=== PATIENT | female | born 1970 | race Caucasian/White ===

== ENCOUNTER → 2016-08-28 | Outpatient (CLI) | payer MEDICARE, OTHER ==
--- NOTE | 2016-08-28 10:11 | US ---
EXAMINATION TYPE: US kidneys/renal and bladder DATE OF EXAM: 08/28/2016 9:50 AM COMPARISON: 12/30/2015 CLINICAL HISTORY: Abd Pain R10.84. Left flank pain and left pelvic pain; renal stones, UTI; patient s lee is on antibiotics for urinary infection, and also had surgery on left kidney as a child EXAM MEASUREMENTS: Right Kidney: 11.0 x 4.8 x 3.6 cm Left Kidney: 13.0 x 5.8 x 5.7 cm Post Void Residual Volume: 10.5 mL Findings: Right Kidney: multiple renal calcifications are noted with largest in superior pole = 0.8 x 0.4 x 0.3 cm; mild hydronephrosis noted upper pole Left Kidney: moderate hydronephrosis; multiple renal calcifications noted throughout with largest at inferior pole =1.1 x 0.8 x 0.6cm Bladder: posterior wall stones especially noted left posterior bladder = 0.4 x 0.4 x 0.2cm and seen p re and post void Bilateral Jets seen: no, only right ureteral jet was seen within 3 minute observation Normal Post Void Residual: Yes IMPRESSION: 1. Mild right-sided hydronephrosis and nephrolithiasis. 2. Moderate left-sided hydronephrosis with multiple calculi seen as discussed above. 3. Urinary bladder calculi.
== END | disposition home or self-care (01) ==
LOC: RADUSWWP 08:50
PROVIDERS: ATTEND Family Medicine
DX: N13.2 Hydronephrosis with renal and ureteral calculous obstruction (principal); N21.0 Calculus in bladder
CPT/HCPCS: 76770

== ENCOUNTER → 2017-08-30 | Outpatient (CLI) | payer MEDICARE, OTHER ==
--- NOTE | 2017-08-30 09:41 | US ---
EXAMINATION TYPE: US kidneys/renal and bladder DATE OF EXAM: 08/30/2017 COMPARISON: US renal 04/05/2017, CT abdomen and pelvis 04/05/2017 CLINICAL HISTORY: N20.9 Urolithiasis. History of stones. Left flank pain EXAM MEASUREMENTS: Right Kidney: 12.2 x 4.9 x 4.9 cm Left Kidney: 12.2 x 4.4 x 4.9 cm Right Kidney: Echogenic foci upper pole measuring 0.6 cm Left Kidney: Multiple echogenic foci visualized throughout, largest upper pole measuring 1.1 cm. Hypo echoic, cystic area visualized in the upper pole measuring 2.4 x 2.0 x 1.6 cm, possible parapelvic cy st vs other Bladder: Echogenic debris visualized within Bilateral Jets seen: No. Jets are not visualized after 3 minutes of scanning IMPRESSION: Markedly abnormal left kidney remains present with multiple nonobstructing calculi and simple appeari ng cysts. Consider nuclear medicine functional study to assess for left renal function if has not bee n performed.
== END | disposition home or self-care (01) ==
LOC: RADUSWWP 08:50 → MERGE 09:00
PROVIDERS: ATTEND Family Medicine
DX: N20.0 Calculus of kidney (principal); N28.1 Cyst of kidney, acquired
CPT/HCPCS: 76770

== ENCOUNTER → 2018-05-07 | Outpatient (CLI) | payer MEDICARE, OTHER ==
--- NOTE | 2018-05-07 10:47 | USB ---
Reason for exam: clinical finding. History: Family history of breast cancer in cousin and breast cancer in aunt. Indicated problem(s): palpable abnormality in the right breast. Physical Findings: Nurse Summary: right breast palpable 11 o'clock upper outer quadrant, 0.5 x 0.5cm, mobile, tender, bilateral nodularity/tenderness on exam (nurse ts). US Breast BILAT Technologist: Tiara Verde, RT (R)(M) Right complete breast ultrasound includes all four quadrants, the retroareolar region and axilla. Finding demonstrates a 6 x 3 x 7mm oval, cystic, benign lesion at 11 o'clock. Left complete breast ultrasound includes all four quadrants, the retroareolar region and axilla. Finding demonstrates a 6 x 3 x 11mm oval, cystic, benign lesion at 4 o'clock corresponds to the palpable abnormality and a 5mm node at the axilla. These results were verbally communicated with the patient and result sheet given to the patient on 05/07/18. ASSESSMENT: Incomplete: need additional imaging evaluation, BI-RAD 0 RECOMMENDATION: Follow-up diagnostic mammogram of both breasts.
--- NOTE | 2018-05-07 10:50 | MM ---
Reason for exam: clinical finding. Baseline mammogram. History: Family history of breast cancer in cousin and breast cancer in aunt. MG Diagnostic Mammo w CAD WEN Bilateral CC and MLO view(s) were taken. Technologist: Tiara Verde RT (R)(M) The breast tissue is heterogeneously dense. This may lower the sensitivity of mammography. There is a posterior depth left upper outer quadrant mass corresponding to the sonographically normal node. There is a right mass in the upper outer quadrant at posterior depth at 11 o'clock corresponding to a cyst on ultrasound. These results were verbally communicated with the patient and result sheet given to the patient on 05/07/18. ASSESSMENT: Benign, BI-RAD 2 RECOMMENDATION: Routine screening mammogram of both breasts in 1 year.
== END ==
LOC: RADUSWWP 09:43
PROVIDERS: ATTEND Family Medicine
DX: R92.8 Other abnormal and inconclusive findings on diagnostic imaging of breast (principal)
CPT/HCPCS: 77066

== ENCOUNTER → 2018-05-23 | Outpatient (CLI) | payer MEDICARE, OTHER ==
--- NOTE | 2018-05-23 14:48 | P.GSHP ---
History of Present Illness H&P Date: 05/23/18 Chief Complaint: patient complains of tenderness in the right breast for 6 months The patient is a 47 year old white female with a complaint of tenderness in her right breast. This is been present for approximately 6 months. She had her first mammogram and ultrasound performed on [id number]. On the ultrasound she was noted to have in the right breast a 6 x 7 mm cystic benign lesion at 11: 00. In the left breast she was noted to have a 6 x 11 mm cystic lesion at 4:00 corresponding to the palpable change and a 5 mm node in the axilla. She then had a bilateral mammogram performed which revealed a left upper outer quadrant mass corresponding to the sonographically normal node. In the right a mass in the upper outer quadrant corresponding to a cyst seen on ultrasound. This was felt to be benign and it was recommended she have routine screening mammogram of both breast in 1 year. The patient has no history of any trauma or infection in the breast. She does smoke and lives with at smoker. She does not drink pop. She drinks coffee, about a pot/day. She eats chocolate rarely. The pain is not cyclical. Family history: 1.sister: cervical cancer 2. cousin maternal: cervical cancer Hormonal History: menarche: 16 : 5, 2 miscarriages, breast fed: none, first at 19 periods: partial hysterectomy for bleeding left her ovaries BCP: 2 years hormones: none Past Surgical History: 1. partial nephrectomy for Wilhms tumor 2. hysterectomy 3. gallbladder 4. partial knee 5. tonsil Past Medical History: 1. kidney dysfunction 2. diabetic diet controlled Social History: smoke: 1/PPD for 15 years alcohol: rare drugs: none - Constitutional Constitutional: Reports sweats - EENT Comment: vertigo Eyes: bilateral bulging eye, bilateral pain Ears: right: tinnitus, deny: decreased hearing Ears, nose, mouth and throat: Reports headache, Denies sore throat - Breasts Breasts: bilateral: as per HPI - Cardiovascular Comment: prolapsed mitral valve - Respiratory Comment: asthma, Respiratory: Denies cough, Denies 7 - Gastrointestinal Comment: PUD Gastrointestinal: Denies abdominal pain, Denies diarrhea, Denies nausea, Denies vomiting - Genitourinary (Female) Genitourinary: Reports hematuria, Reports kidney stones - Menstruation Menstruation: Reports post hysterectomy - Musculoskeletal Comment: arthritis/fibromyalgia - Integumentary Integumentary: Denies pruritus, Denies rash - Neurological Neurological: Reports numbness, Denies weakness - Psychiatric Psychiatric: Reports anxiety - Endocrine Comment: diabetes, over-active thyroid - Hematologic/Lymphatic Comment: none - Allergic/Immunologic Allergic/Immunologic: Reports seasonal allergies Past Medical History Past Surgical History: Cholecystectomy, Hysterectomy, Orthopedic Surgery Past Psychological History: Anxiety Smoking Status: Current every day smoker Surgical - Exam - General well developed, well nourished, no distress - Eyes normal ocular movement - ENT no hearing loss, no congestion - Neck trachea midline - Respiratory normal respiratory effort, clear to auscultation - Cardiovascular Rhythm: regular Heart Sounds: normal: S1, S2 - Abdomen Abdomen: soft, non tender, no guarding, no rigid, no rebound - Integumentary no rash, no abnormal pigmentation - Neurologic no disoriented, no combative - Musculoskeletal normal gait, normal posture - Psychiatric oriented to time, oriented to person, oriented to place, speech is normal, memory intact Breast examination: Right breast: Multi-positional exam no dominant masses or nodules of concern noted Right axilla: No adenopathy of concern Left breast: Multi-positional exam of dominant masses or nodules of concern Left axilla: No adenopathy of concern Results RADIOGRAPH reports reviewed Assessment and Plan Assessment: Impression: 1. Pain right breast 2. Fibrocystic breast changes 3. Wilms tumor left kidney status post partial nephrectomy 4. History of kidney stones 5. arthritis 6. Mitral valve prolapse 7. Status post cholecystectomy 8. Nicotine dependence 9. Hypoparathyroidism, 10. Diabetes Plan: 1. Discussion regarding fibrocystic breast disease and breast pain 2. Patient will decide based on discussion regarding smoking and caffeine intake 3. Medical management of medical problems CC: Dr. Ferrara
[2018-05-23 14:51] VITALS: BP 129/80; PULSE 77; RESP 18; TEMP 99.9; BMI 23.3
== END | disposition home or self-care (01) ==
LOC: WWCWWP 14:04
PROVIDERS: ATTEND Surgery
DX: Z53.9 Procedure and treatment not carried out, unspecified reason (principal)

== ENCOUNTER → 2018-09-06 | Outpatient (CLI) | payer MEDICARE, OTHER ==
--- NOTE | 2018-09-06 16:05 | US ---
EXAMINATION TYPE: US kidneys/renal and bladder DATE OF EXAM: 09/06/2018 COMPARISON: 08/30/2017, 04/05/2017 and 08/28/2016 renal ultrasound as well as CT dated 04/05/2017 CLINICAL HISTORY: Kidney Pain N23. left kidney pain, known stones EXAM MEASUREMENTS: Right Kidney: 10.8 x 5.3 x 5.4 cm Left Kidney: 11.4 x 6.8 x 7.2 cm Right Kidney: No hydronephrosis or masses seen Left Kidney: multiple stones seen with hydronephrosis present, largest stone appears to be laterally = 1.3cm Bladder: wnl Bilateral Jets seen: yes IMPRESSION: 1. Continued worsening of the markedly abnormal appearance of the left kidney with severe left hydron ephrosis and multiple renal calculi. Cortical renal thinning indicates chronicity. 2. No hydronephrosis or nephrolithiasis on the right.
--- NOTE | 2018-09-06 16:55 | CT ---
EXAMINATION TYPE: CT abdomen pelvis wo con DATE OF EXAM: 09/06/2018 COMPARISON: 04/05/2017 INDICATION: left flank pain, hx of stones DLP: 229 mGycm, Automated exposure control for dose reduction was used. CONTRAST: 0 mL of Isovue 300. Study performed without Oral Contrast TECHNIQUE: Axial images were obtained from above the diaphragm to the pubic rami in the axial plane a t 5 mm thick sections. Reconstructed images are reviewed on the computer in the coronal plane. FINDINGS: Limited CT sections are obtained the lung bases. The lung bases are clear. CT ABDOMEN: Liver: Normal Spleen: Normal Pancreas: Normal Adrenal glands: The adrenal glands are normal. Gallbladder: Surgically absent Kidneys: No masses are evident. There is moderate to marked left hydronephrosis. Extensive nonobstruc ting renal stones are scattered throughout the upper and lower poles the slightly malrotated left kid dru. Calcifications measure approximately 0.3-0.4 cm each. There is mild left hydroureter within the proximal portion. Mid pelvic portion is somewhat difficult to visualize. However, there are 2 calcifi cations just proximal to the left ureterovesical junction which could be distal ureteral stones. This measures 0.3 cm may be at the left ureterovesical junction, series 3 image 114 in the distal left ur eter measuring 0.2 cm, series 3 image 111. There are phleboliths present within the pelvis. The dista l right ureteral stone is not excluded. Mild right hydronephrosis may be present. Hydroureter however is not identified No cysts are present. Aorta: Normal Inferior vena cava: Normal. CT PELVIS: Loops of bowel within the abdomen and pelvis are normal. Study is performed without oral contrast limiting bowel evaluation. Appendix: Not visualized. No suspicious tubular structures or inflammatory changes are identified. Urinary bladder: Normal. Genitourinary structures: Uterus is not identified. Adnexal regions appear clear Osseous structures: No suspicious lytic or sclerotic lesions. IMPRESSIONS: 1. Moderate to marked left hydronephrosis. Multiple nonobstructing renal stones are within the malro tated left kidney. These measure 0.3 to 0.4 cm in size. 2. Mild left hydroureter within the proximal portion. 2 distal left ureteral stones may be present. D ifferential could include phleboliths. Correlate with symptoms. 3. Mild right hydronephrosis. No obstructing renal or ureteral stones are evident. Distal right urete ral stone however is not entirely excluded. No significant hydroureter is evident on the right.
== END ==
LOC: RADUSWWP 15:00
PROVIDERS: ATTEND Family Medicine
DX: N13.2 Hydronephrosis with renal and ureteral calculous obstruction (principal)
CPT/HCPCS: 74176; 76770

== ENCOUNTER → 2020-05-26 | Outpatient (CLI) | payer MEDICARE, OTHER ==
[~2020-05-26] MED LIST: FUROSEMIDE 10 MG/ML 2 ML VIAL IV ONE
--- NOTE | 2020-05-26 15:17 | NM ---
EXAMINATION TYPE: NM lasix renogram DATE OF EXAM: 05/26/2020 COMPARISON: 08/30/2019 HISTORY: Pain, hydronephrosis Following administration of 9.74 mCi Tc 99m MAG3 with 20mg Lasix. Immediate images post injection FINDINGS: Left: 47.1 %. Right: 52.9 %. Max renal flow left: 11.5 minutes. Max renal flow right: 52.9 minutes. Satisfactory accumulation of radiotracer within both renal collecting systems. After the administrati on of Lasix, there is prompt excretion from both collecting systems. T 1/2 left: 18.5 minutes. T 1/2 right: 11.6 minutes. IMPRESSION: 1. Split renal function of 53% on the right and 47% on the left. Additionally, there appears to be re duced radiotracer accumulation within the left kidney and a longer T1/2 time compatible with hydronep hrosis.
== END | disposition home or self-care (01) ==
LOC: RADNMMAIN 13:54
PROVIDERS: ATTEND Urology
DX: N13.30 Unspecified hydronephrosis (principal); Z88.0 Allergy status to penicillin; Z88.5 Allergy status to narcotic agent; Z88.8 Allergy status to other drugs, medicaments and biological substances
CPT/HCPCS: 78708; A9562

== ENCOUNTER → 2020-11-04 | Outpatient (CLI) | payer MEDICARE, OTHER | END | disposition home or self-care (01) | LOC: LABWHC1 16:18 | PROVIDERS: ATTEND Family Medicine | DX: Z20.822 Contact with and (suspected) exposure to COVID-19 (principal) | CPT/HCPCS: U0003; C9803 ==

== ENCOUNTER → 2021-05-06 | Outpatient (CLI) | payer MEDICARE, OTHER ==
[2021-05-06 22:33] LABS: HCT 43.4 % (37.2-46.3); HGB 14.1 g/dL (12.0-15.0); MCH 30.2 pg (27.0-32.0); MCHC 32.5 g/dL (32.0-37.0); MCV 92.9 fL (80.0-97.0); Platelet Count 213 X 10*3/uL (140-440); RBC 4.67 X 10*6/uL (4.10-5.20); RDW 13.4 % (11.5-14.5); WBC 8.64 X 10*3/uL (4.50-10.00)
[2021-05-06 23:07] LABS: INR 0.99 (0.90-1.11); Prothrombin Time 10.8 sec (9.9-11.9)
== END | disposition home or self-care (01) ==
LOC: LABWHC1 14:25
PROVIDERS: ATTEND Family Medicine
DX: T14.8XXA Other injury of unspecified body region, initial encounter (principal); X58.XXXA Exposure to other specified factors, initial encounter
CPT/HCPCS: 36415; 81241; 85027; 85610

== ENCOUNTER → 2022-02-21 | Outpatient (CLI) | payer MEDICARE, OTHER ==
[2022-02-21 17:40] LABS: African American GFR (CKD) >90 (>60 ml/min/1.73 sqM); Blood Urea Nitrogen 17 mg/dL (7-17); Non-African American GFR(CKD) >90 (>60 ml/min/1.73 sqM)
--- NOTE | 2022-02-21 19:21 | CT ---
EXAMINATION TYPE: CT brain wo/w con CT DLP: 2196 mGycm, Automated exposure control for dose reduction was used. DATE OF EXAM: 02/21/2022 6:07 PM COMPARISON: CT brain . CLINICAL INDICATION:Female, 51 years old with history of R55 SYNCOPE AND COLLAPSE, syncope, vertigo a nd visual changes TECHNIQUE: Axial CT images of the brain were obtained with coronal and sagittal reformats created and reviewed. Contrast used:100 mL of Isovue 300 with IV Contrast, Oral contrast used: none. FINDINGS: Extra-axial spaces: No abnormal extra-axial fluid collections. Ventricular system: Within normal limits Cerebral parenchyma: No acute intraparenchymal hemorrhage or mass effect. The beckman-white junction is well differentiated. No abnormal enhancement is seen after the administration of intravenous contras t. Cerebellum: Unremarkable. Mass effect: No evidence of midline shift. Intracranial vasculature: No evidence for aneurysm or high-grade stenosis. Soft tissues: Normal. Calvarium/osseous structures: No depressed skull fracture. Paranasal sinuses and mastoid air cells: Clear. Visualized orbits: Orbital contents are intact. IMPRESSION: 1. No acute intracranial process. 2. No abnormal postcontrast enhancement.
== END | disposition home or self-care (01) ==
LOC: RADCTMAIN 17:02
PROVIDERS: ATTEND Family Medicine
DX: R55 Syncope and collapse (principal)
CPT/HCPCS: 82565; 84520; 70470; 36415; Q9967

== ENCOUNTER → 2023-12-13 | Outpatient (CLI) | payer MEDICARE, OTHER ==
--- NOTE | 2023-12-13 22:33 | CT ---
EXAMINATION TYPE: CT abdomen pelvis wo con CT DLP: 327.10 mGycm, Automated exposure control for dose reduction was used. DATE OF EXAM: 12/13/2023 8:57 AM COMPARISON: CT abdomen 08/30/2019, CT abdomen and pelvis 09/06/2018 CLINICAL INDICATION:Female, 53 years old with history of N20.0 calculus of kidney; Calculus of kidney . c/o flank pain, urination problems TECHNIQUE: Standard CT of the abdomen and pelvis without IV or oral contrast. Lack of IV or oral co ntrast limits evaluation of solid and hollow organ viscera. Coronal and sagittal reformats were perfo rmed. FINDINGS: LOWER CHEST: Stable lingular 4 mm pulmonary nodule dating back 2019 and is a benign. ABDOMEN LIVER: Unremarkable noncontrast appearance GALLBLADDER AND BILE DUCTS: Gallbladder is surgically absent. No biliary ductal dilatation. PANCREAS: Unremarkable noncontrast appearance. SPLEEN: Unremarkable noncontrast appearance. ADRENAL GLANDS: Unremarkable noncontrast appearance. KIDNEYS AND URETERS: No hydroureter identified. No right hydronephrosis. There is again malrotated ap pearance of the left kidney with chronic mild hydronephrosis versus parapelvic cysts demonstrated. Co rtical thinning of the left kidney demonstrated. Nonobstructive right superior pole 3 mm calculus. Mu ltiple nonobstructive calculi within the left kidney with largest measuring up to 1 cm in the lower p ole. PELVIS BLADDER: Incompletely distended but grossly unremarkable. REPRODUCTIVE: Uterus appears surgically absent. ABDOMEN & PELVIS STOMACH AND BOWEL: No focal bowel wall thickening or surrounding inflammatory changes. Appendix is within normal limits. No evidence of bowel obstruction. PERITONEUM: No evidence of pneumoperitoneum or free fluid. VASCULATURE: Mild atherosclerotic calcifications are present throughout the abdominal aorta and its b ranches. No evidence of aortic aneurysm. Pelvic phleboliths demonstrated. MUSCULOSKELETAL: No acute osseous abnormalities. Degenerative changes of the spine most pronounced at L5-S1. LYMPH NODES: No gross evidence for lymphadenopathy. SOFT TISSUE/ABDOMINAL WALL: Benign calcification within the left lower back soft tissues. IMPRESSION: 1. Chronic appearing mild left-sided hydronephrosis versus parapelvic cysts without obstructing calc ulus visualized. No hydroureter. Evaluation is limited due to lack of intravenous contrast. 2. Multiple nonobstructive left renal calculi with single nonobstructive right renal calculus.
== END | disposition home or self-care (01) ==
LOC: RADCTMAIN 08:39
PROVIDERS: ATTEND Urology
DX: N20.0 Calculus of kidney (principal); Z90.49 Acquired absence of other specified parts of digestive tract
CPT/HCPCS: 74176

== ENCOUNTER → 2024-01-03 | Outpatient (CLI) | payer MEDICARE, OTHER ==
--- NOTE | 2024-01-05 19:05 | NM ---
EXAMINATION TYPE: NM lasix renogram DATE OF EXAM: 01/03/2024 COMPARISON: 05/26/2020 CLINICAL INDICATION: Female, 53 years old with history of N13.30 UNSPECIFIED HYDRONEPHROSIS; Following administration of 9.9 mCi Tc 99m MAG3 with 20mg Lasix. Immediate images post injection FINDINGS: Left: 46.8 %. Right: 53.2 %. Max renal flow left: 11 minutes. Max renal flow right: 7 minutes. Satisfactory accumulation of radiotracer within both renal collecting systems. After the administrati on of Lasix, there is prompt excretion from both collecting systems. T 1/2 left: 25.8 minutes minutes. T 1/2 right: 13.5 minutes minutes. IMPRESSION: Dilated nonobstructed left renal collecting system. Normal right renal collecting system. Findings si milar to prior on 05/26/2020.
== END | disposition home or self-care (01) ==
LOC: RADNMMAIN 12:52
PROVIDERS: ATTEND Urology
DX: N13.30 Unspecified hydronephrosis (principal)
CPT/HCPCS: 78708; A9562